=== PATIENT | female | born 1985 | race Caucasian/White ===

== ENCOUNTER 2025-05-10 13:41 | Emergency (ER) | payer MEDICAID, SELFPAY ==
[2025-05-10 13:59] VITALS: BP 156/114; PULSE 101; RESP 18; TEMP 36.7; O2SAT 98
--- NOTE | 2025-05-10 14:09 | XR_ITS ---
Examination: Pelvic ultrasound, transabdominal, complete Technique: Transabdominal ultrasound of the pelvis performed using grayscale imaging Date and time of exam: May 10, 2025 1458 hours INDICATIONS: Heavy vaginal bleeding and pelvic pain beginning 2 days ago FINDINGS: Uterus 10.1 cm with partial visualization Essure device Endometrial stripe 0.6 cm No uterine mass or intrauterine gestation Right ovary 3.0 cm arterial flow. Left ovary 3.2 cm arterial flow IMPRESSION: No uterine or adnexal mass
--- NOTE | 2025-05-10 14:11 | PD.EDRME ---
Rapid Medical Screening Exam RME Arrival date/time: 05/10/25 13:41 39-year-old female with no known medical history presents to the emergency room with a chief complaint of vaginal bleeding that began this morning. Patient states she is not . I have greeted and performed a focused initial assessment of this patient. A comprehensive ED assessment and evaluation of the patient, analysis of all test results, and completion of the medical decision making process will be conducted by additional ED providers. Chief Complaint: Vaginal Bleeding Vital signs: Vital Signs Temperature 98.1 F 05/10/25 13:59 Pulse Rate 101 H 05/10/25 13:59 Respiratory Rate 18 05/10/25 13:59 Blood Pressure 156/114 H 05/10/25 13:59 Pulse Oximetry (%) 98 05/10/25 13:59 Oxygen Delivery Method Room Air 05/10/25 13:59 Vital signs reviewed by provider: Yes
[2025-05-10 14:33] LABS: Basophils # (Auto) 0.0 Thou/mm3 (0.0-0.2); Basophils % (Auto) 0 % (0-2.5); Eosinophils # (Auto) 0.2 Thou/mm3 (0.0-0.5); Eosinophils % (Auto) 2 % (0-10); Hematocrit 40.4 % (36.0-46.0); Hemoglobin 13.2 g/dL (12.0-16.0); Immature Granulocytes Auto 0.03 Thou/mm3 (0.00-0.00); Lymphocytes # (Auto) 2.6 Thou/mm3 (1.0-4.8); Lymphocytes % (Auto) 25 % (10-50); Mean Corpuscular HGB Conc 32.7 g/dl (31.0-37.0); Mean Corpuscular Hemoglobin 29.4 pg (25.0-35.0); Mean Corpuscular Volume 90 fL (80-100); Monocytes # (Auto) 0.6 Thou/mm3 (0.0-0.8); Monocytes % (Auto) 6 % (0-12); Neutrophils # (Auto) 7.0 Thou/mm3 (1.8-7.7); Neutrophils % (Auto) 67 % (37-80); Nucleated Red Blood Cell # 0.00 Thou/mm3 (0.00-0.00); Nucleated Red Blood Cell % 0 /100 WBC (0); Platelet Count 289 Thou/mm3 (140-440); RDW Standard Deviation 45.4 fL (36.4-46.3); Red Blood Count 4.49 Miln/mm3 (4.00-5.20); White Blood Count 10.5 Thou/mm3 (3.6-11.0)
[2025-05-10 14:49] LABS: INR 1.0 (0.9-1.3); Partial Thromboplastin Time 23.5 Seconds (22.0-36.0); Prothrombin Time 10.9 Seconds (9.0-12.2)
[2025-05-10 14:51] LABS: Alanine Aminotransferase 118 U/L (10-49); Albumin, Serum 4.2 gm/dL (3.5-5.0); Albumin/Globulin Ratio 1.6 (1.2-2.2); Alkaline Phosphatase 111 U/L (46-116); Anion Gap 12 (7-16); Aspartate Amino Transferase 185 U/L (0-34); BUN/Creatinine Ratio 10 Ratio (12-20); Bilirubin,Total 0.9 mg/dL (0.3-1.2); Blood Urea Nitrogen 8 mg/dL (9-23); Calcium 9.5 mg/dL (8.3-10.6); Calcium (Corrected) 9.5 mg/dL (8.5-10.1); Carbon Dioxide 23.9 mMol/L (20.0-31.0); Chloride 104 mMol/L (98-107); Creatinine (Component) 0.8 mg/dL (0.6-1.3); Estimated Creatinine Clearance 109.3 mL/min (>60); Globulin 2.7 gm/dL (2.3-3.5); Glucose 104 mg/dL (74-106); Osmolality,Calculated 277 (275-295); Potassium 4.4 mMol/L (3.4-5.1); Sodium 140 mMol/L (136-145); Total Protein 6.9 gm/dL (5.7-8.2); eGFR > 60 See Note
--- NOTE | 2025-05-10 18:33 | PD.EDVAGBL ---
ED OB Contraction Preg RMI/HPI General Chief complaint: Vaginal Bleeding Stated complaint: VERY HEAVY MENSTRAL BLEEDING, VERY PAINFUL Time Seen by Provider: 05/10/25 14:12 Arrival date/time: 05/10/25 13:41 RME / HPI RME / HPI Narrative: 05/10/25 13:41 39-year-old female with no known medical history presents to the emergency room with a chief complaint of vaginal bleeding that began this morning. Patient states she is not . I have greeted and performed a focused initial assessment of this patient. A comprehensive ED assessment and evaluation of the patient, analysis of all test results, and completion of the medical decision making process will be conducted by additional ED providers. -------- See [facility] for Dr. Oconnor's HPI documentation. Related Data Previous Rx's ?Medication ?Instructions ?Recorded meclizine 50 mg tablet 50 mg PO BID PRN dizziness #20 tabs 04/01/24 rizatriptan 10 mg disintegrating 10 mg PO Q2H PRN migraine headache 04/01/24 tablet (Maxalt-[employer] [facility]) #20 tabs acetaminophen 300 mg-codeine 30 mg 2 tab PO Q8H PRN pain #20 tabs 05/10/25 tablet ketorolac 10 mg tablet 10 mg PO Q8H PRN pain 5 days #10 05/10/25 tabs norgestimate-ethinyl estradiol 1 tab PO QID #28 tabs 05/10/25 0.18mg/0.215mg/0.25mg-0.035mg(28)tablet (Ortho Tri-Cyclen (28)) ondansetron 4 mg disintegrating 4 mg PO TID PRN nausea and 05/10/25 tablet vomiting 30 days #10 tabs Allergies Allergy/AdvReac Type Severity Reaction Status Date / Time Penicillins Allergy Mild VOMITING, Verified 05/10/25 13:44 UPSET STOMACH acetaminophen (From [place]) Allergy Nausea Verified 05/10/25 13:44 hydrocodone (From [place]) Allergy Nausea Verified 05/10/25 13:44 Review of Systems Review of Systems Systems Reviewed: All systems reviewed, normal except as documented Past Medical History Social History SMOKING STATUS: Former smoker ED Exam Narrative Physical exam: See [facility] for Dr. Oconnor's physical exam documentation. Course Quality Measures none Orders Category Date Time Status US pelvic complete Stat Exams 05/10/25 14:09 Completed CBC Stat Lab 05/10/25 14:23 Completed CMP [Comprehensive Metabolic Panel] Stat Lab 05/10/25 14:23 Completed HCG,Qualitative Serum Stat Lab 05/10/25 14:23 Completed PT [Prothrombin Time with INR] Stat Lab 05/10/25 14:23 Completed PTT [Partial Thromboplastin Time] Stat Lab 05/10/25 14:23 Completed Type and Screen Stat Lab 05/10/25 14:23 Completed Vital Signs Vital signs: Vital Signs Temperature 98.1 F 05/10/25 13:59 Pulse Rate 101 H 05/10/25 13:59 Respiratory Rate 18 05/10/25 13:59 Blood Pressure 156/114 H 05/10/25 13:59 Pulse Oximetry (%) 98 05/10/25 13:59 Oxygen Delivery Method Room Air 05/10/25 13:59 Vaginal Bleeding MDM Narrative MDM Narrative: This section includes all my notes and documentations, including HPI, PE, and ED course. Rell Oconnor MD HPI: 39yo female here with abdominal cramping and vaginal bleeding since yesterday. Patient started her menses yesterday and has since had 5 episodes of heavy bleeding with clots. No dysuria. No other complaints reported. ROS: All negative except as documented in HPI. Physical Exam: General: Alert and oriented. No acute distress when remaining still. Eyes: Conjunctivae and lids clear. ENT: No nasal congestion. Neck: Supple. Heart: RRR. Lungs: No respiratory distress. Good air movement. No rhonchi, wheezing, rales. Abdomen: Soft and nontender. Normal bowel sounds. No distension. No rebound or guarding. Back: No CVA tenderness. Skin: Warm and dry. Neuro: Alert and oriented X 3. I reviewed all diagnostic test results. My review of the pelvic ultrasound report is NAD. Blood tests are unremarkable. At this point, diagnoses include: Dysfunctional uterine bleeding Recommended outpatient management. Based on my best medical judgment, made decision no further evaluation or treatment indicated at this time. Patient understands and agrees to the discharge instructions customized and printed, see below. Discharge Instructions from Dr. Oconnor printed for you: 1. Fortunately, your red blood cell count is normal. Meaning you didn't lose a ton of blood where we need to consider blood transfusion. 2. Take Ortho Tri-Cyclen, one pill 4 times daily for 7 days. This will help stop the bleeding. 3. Toradol 10 mg every 8 hours today and tomorrow then as needed. 4. Tylenol with codeine for severe pain. 5. For good hydration, increase oral fluid and maintain clear urine. If dark or yellow, increase oral fluid. Zofran for nausea/vomiting. 6. See a private doctor on 05/11/2025 for recheck. Ask to review all test results and official radiology reports, to make sure you receive all necessary follow-ups and monitoring. Ask for a referral to see emergency medical technician for further care. 7. Seek immediate medical care with intolerable pain, severely heavy vaginal bleeding (soaking more than 3 pads every hour), or with any concerns. Rell Oconnor MD Patient data External records reviewed:: [facility] previous records (Per chart review, patient was seen here on 04/01/24 for dizziness.) Clinical information provided by:: patient Social determinants that could affect healthcare access:: none Patient has the following chronic illnesses:: none How is presenting disease/condition affected by chronic disease/condition?: no chronic disease Evaluation data The following diagnostics were reviewed and interpreted by me:: lab results and radiology exam(s) Lab and/or radiology exams considered but not ordered:: none Interpretation Summary: I reviewed all diagnostic test results. My review of the pelvic ultrasound report is NAD. Blood tests are unremarkable. Medications / Prescriptions Medications or Prescriptions considered but not ordered:: none Medication administrations:: none Consultations Consultation(s) initiated? (list below): No Diagnosis Vaginal Bleeding Differential Diagnosis: threatened , dysfunctional uterine bleeding, menometrorrhagia and ectopic without intrauterine Most likely diagnosis given after review of the tests above:: Dysfunctional uterine bleeding Admission Indicated Admission indicated?: not indicated Explain why admission is indicated or not indicated:: With no condition needing emergent intervention, there was no indication for admission. Admission Request Was there a request for admission?: No Disposition Plan Disposition Plan: Discharge Discharge Attestation Discharge Attestation: The patient and all family members were given an opportunity to ask questions and understood the discharge instructions. Discharge instructions specifically effects, indications for sooner follow up or return to the emergency department, and the expected course of current diagnosis. Patient condition: Stable Discharge Plan Plan Patient Disposition: HOME (Self Care) Prescriptions/Referrals Prescriptions/Med Rec: New acetaminophen-codeine 300-30 mg tablet 2 tab PO Q8H MDD 6 PRN (Reason: pain) Qty: 20 0RF ketorolac 10 mg tablet 10 mg PO Q8H PRN (Reason: pain) 5 Days Qty: 10 0RF norgestimate-ethinyl estradiol [Ortho Tri-Cyclen (28)] 0.18/0.215/0.25 mg-0.035mg (28) tablet 1 tab PO QID Qty: 28 0RF Rx Instructions: This is to stop bleeding and not for control. ondansetron 4 mg tablet,disintegrating 4 mg PO TID PRN (Reason: nausea and vomiting) 30 Days Qty: 10 0RF No Action meclizine 50 mg tablet 50 mg PO BID PRN (Reason: dizziness) Qty: 20 0RF rizatriptan [Maxalt-[employer]] 10 mg tablet,disintegrating 10 mg PO Q2H PRN (Reason: migraine headache) Qty: 20 0RF Rx Instructions: do not exceed 3 doses per 24 hrs Referrals: No Primary/Family,Physician [Primary Care Provider] - In 1 week Problem List Clinical Impression: Dysfunctional uterine bleeding Patient/Caregiver Discharge Instructions Discharge Activity: activity as tolerated Education Materials: ED Dysfunctional Uterine Bleeding Additional Instructions: Discharge Instructions from Dr. Oconnor printed for you: 1. Fortunately, your red blood cell count is normal. Meaning you didn't lose a ton of blood where we need to consider blood transfusion. 2. Take Ortho Tri-Cyclen, one pill 4 times daily for 7 days. This will help stop the bleeding. 3. Toradol 10 mg every 8 hours today and tomorrow then as needed. 4. Tylenol with codeine for severe pain. 5. For good hydration, increase oral fluid and maintain clear urine. If dark or yellow, increase oral fluid. Zofran for nausea/vomiting. 6. See a private doctor on 05/11/2025 for recheck. Ask to review all test results and official radiology reports, to make sure you receive all necessary follow-ups and monitoring. Ask for a referral to see emergency medical technician for further care. 7. Seek immediate medical care with intolerable pain, severely heavy vaginal bleeding (soaking more than 3 pads every hour), or with any concerns. Print Language: Serbian Stand Alone Forms: [facility] Award Info., Patient Portal Info Letter
[2025-05-10 18:55] LABS: HCG,Qualitative Serum Negative
== END 2025-05-10 19:13 | disposition home or self-care (01) ==
PROVIDERS: Nurse Practitioner Family; Emergency Provider Emergency Medicine
DX: N93.8 Other specified abnormal uterine and vaginal bleeding (principal)
CPT/HCPCS: 36415; 76856; 80053; 81025; 84703; 85025; 85610; 85730; 86850; 86900; 86901; 99283